=== PATIENT | male | born 1985 | race Caucasian/White ===

== ENCOUNTER 2021-08-06 16:18 | Inpatient (IN) | payer OTHER ==
[~2021-08-06] VITALS: Ht 172.7 cm; Wt 81.7 kg
--- NOTE | 2021-08-06 16:40 | PHYS DOC ---
Past History Past Surgical History: No Surgical History Adult General Chief Complaint Chief Complaint: DEHYDRATION HPI HPI Patient is a 35-year-old male with a past medical history significant for recent diagnosis of Covid who presents with a chief complaint of fatigue, body aches, cough, nasal congestion and nausea. States that the nausea was worse today, decreasing his appetite and is unable to eat anything without throwing up. States he has had some fluid. States that he was able to eat and drink before today. States he is making urine and stool normally for him. States he felt like he had a fever at home but did not take his temperature. Review of Systems Review of Systems Review of systems otherwise unremarkable except noted in HPI Allergies Allergies Allergies Coded Allergies Type Severity Reaction Last Updated Verified No Known Drug Allergies 08/06/21 No Physical Exam Physical Exam Constitutional: Well developed, well nourished, no acute distress, non-toxic appearance. [] HENT: Normocephalic, atraumatic, bilateral external ears normal, oropharynx moist, no oral exudates, nose normal. [] Eyes: conjunctiva normal, no discharge. [] Neck: Normal range of motion, no tenderness, supple, no stridor. [] Cardiovascular:Heart rate regular rhythm, no murmur [] Lungs & Thorax: Bilateral, global, rhonchi, Abdomen: soft, no tenderness, no masses, no pulsatile masses. [] Skin: Warm, dry, no erythema, no rash. [] Back: No tenderness, no CVA tenderness. [] Extremities: No tenderness, no cyanosis, no clubbing, ROM intact, no edema. [] Neurologic: Alert and oriented X 3, normal motor function, normal sensory function, no focal deficits noted. [] Psychologic: Affect normal, judgement normal, mood normal. [] Current Patient Data Vital Signs Vital Signs Date Time Temp Pulse Resp B/P (MAP) Pulse Ox O2 Delivery O2 Flow Rate FiO2 08/06/21 16:30 100.0 95 20 105/62 (76) 97 EKG EKG [] Radiology/Procedures Radiology/Procedures [] XR CHEST 1V CLINICAL INDICATIONS: Reason: cough, covid + / Spl. Instructions: / History: COMPARISON: None available. Findings: Mild ill-defined bilateral lung infiltrates are seen. No pleural effusion or pneumothorax is seen. The heart size, pulmonary vasculature, mediastinum and both sekou are unremarkable. IMPRESSION: Mild ill-defined bilateral lung infiltrates are seen. Electronically signed by: Humza Aguilera MD (08/06/2021 5:18 PM) [id number] Heart Score C/O Chest Pain: No Risk Factors: Risk Factors: DM, Current or recent (<one month) smoker, HTN, HLP, family history of CAD, obesity. Risk Scores: Risk Factors: DM, Current or recent (<one month) smoker, HTN, HLP, family history of CAD, obesity. Course & Med Decision Making Course & Med Decision Making Patient is a 35-year-old male, Covid positive who presents with viral syndrome symptoms Vital signs notable for borderline fever and heart rate in the 90s. Physical exam noted above. Placed on monitor with IV access established. IV fluid begun. Given med ications for symptom management. Given patient's pneumonia on chest x-ray and borderline hypoxia recommended admission to the hospital for continued evaluation treatment of his Covid pneumonia. Patient grateful, verbalized understanding and agreed with plan of admission. [] Dragon Disclaimer Dragon Disclaimer This electronic medical record was generated, in whole or in part, using a voice recognition dictation system. Departure Departure: Impression: Primary Impression: Lab test positive for detection of COVID-19 virus Additional Impressions: Cough Fatigue Body aches Pneumonia Disposition: ADMITTED INPATIENT Admitting Physician: Jamey Koch Condition: IMPROVED Referrals: PCP,NO (PCP) KYLE QUIROGA MD Problem Qualifiers JANUARY LUNDBERG MD Aug 06, 2021 16:40
[2021-08-06] MEDS ORDERED: ACETAMINOPHEN 500 MG TABLET PO ONE (16:45)
[2021-08-06] MEDS ORDERED: IBUPROFEN 600 MG TABLET. PO ONE (16:45)
[2021-08-06] MEDS ORDERED: METOCLOPRAMIDE HCL 10 MG/2 ML VIAL. IVP ONE (16:45)
[2021-08-06] MEDS ORDERED: ONDANSETRON PF 4 MG/2 ML VIAL. IVP ONE (16:45)
[2021-08-06] MEDS ORDERED: IV RINGERS SOLUTION,LACTATED 1,000 ML IV ONE (16:45)
[2021-08-06] MEDS: guaiFENesin/CODEINE 100mg/10mg 5 ML LIQUID PO PRN (17:02)
--- NOTE | 2021-08-06 17:20 | RAD ---
XR CHEST 1V CLINICAL INDICATIONS: Reason: cough, covid + / Spl. Instructions: / History: COMPARISON: None available. Findings: Mild ill-defined bilateral lung infiltrates are seen. No pleural effusion or pneumothorax i s seen. The heart size, pulmonary vasculature, mediastinum and both sekou are unremarkable. IMPRESSION: Mild ill-defined bilateral lung infiltrates are seen. Electronically signed by: Humza Aguilera MD (08/06/2021 5:18 PM) [id number]
[2021-08-06] MEDS ORDERED: DEXAMETHASONE SOD PHOS 10 MG/ML VIAL. IVP ONE (18:00)
[2021-08-06 19:06] LABS: BASO % 0 % (0-3); EOS % 0 % (0-3); HEMATOCRIT 39.8 % (39.0-53.0); HEMOGLOBIN 13.8 g/dL (13.0-17.5); LYMPH # 0.6 x10^3/uL (1.0-4.8); LYMPH % 18 % (24-48); MEAN CORPUSCULAR HEMOGLOBIN 30 pg (25-35); MEAN CORPUSCULAR HGB CONC 35 g/dL (31-37); MEAN CORPUSCULAR VOLUME 88 fL (79-100); MONO # 0.3 x10^3/uL (0.0-1.1); MONO % 10 % (0-9); NEUT # 2.4 x10^3uL (1.8-7.7); NEUT % 71 % (31-73); PLATELET COUNT 106 x10^3/uL (140-400); RED BLOOD COUNT 4.55 x10^6/uL (4.30-5.70); RED CELL DISTRIBUTION WIDTH 12.5 % (11.5-14.5); WHITE BLOOD COUNT 3.3 x10^3/uL (4.0-11.0)
[2021-08-06 19:31] VITALS: BP 102/63
[2021-08-06] MEDS ORDERED: CRESTOR5 MG PO (19:48)
[2021-08-06] MEDS ORDERED: MONT10TA80 PO (19:48)
[2021-08-06] MEDS ORDERED: AMLO-186 PO (19:48)
[2021-08-06] MEDS ORDERED: TRIA10.8 NS (19:48)
[2021-08-06] MEDS ORDERED: PANT40TA6 PO (19:48)
[2021-08-06] MEDS ORDERED: ASPI-889 PO (19:48)
[2021-08-06 19:51] LABS: GFR 86.1; POTASSIUM 3.9 mmol/L (3.5-5.1)
[2021-08-06 21:03] VITALS: BP 92/54
--- NOTE | 2021-08-06 21:22 | NUR ---
Admitted to ICU Rm 6 at approx 1900 in stable condition via EMS from ED; VSS, Sats 94% on room air, lungs CTA bilat with no report of SOA at rest; electronic device monitor shows sinus rhythm with rate in the 70's, no ectopy noted; tolerates water and saltine crackers with no nausea/vomiting at this time; admission history complete; room orientation and plan of care discussed, verbalized understanding; resting at present with no voiced needs or concerns at this time; call wallace in reach.
[2021-08-06] MEDS ORDERED: AZITHROMYCIN 500 MG in IV NORMAL SALINE 250ML 250 ML IV SCH (22:00)
[2021-08-06] MEDS: DEXAMETHASONE SOD PHOS 10 MG/ML VIAL. IV SCH (22:05)
[2021-08-06 22:29] VITALS: BP 112/70
[2021-08-06 23:04] VITALS: BP 100/67
[2021-08-07] VITALS (22 sets, daily range): BP systolic 90–126; BP diastolic 48–76
[2021-08-07 06:35] LABS: CREATININE 0.9 mg/dL (0.7-1.3); GFR 97.2; POTASSIUM 4.3 mmol/L (3.5-5.1)
[2021-08-07 07:28] LABS: BASO % 1 % (0-3); EOS % 0 % (0-3); HEMATOCRIT 44.2 % (39.0-53.0); LYMPH # 0.6 x10^3/uL (1.0-4.8); LYMPH % 34 % (24-48); MEAN CORPUSCULAR HEMOGLOBIN 30 pg (25-35); MEAN CORPUSCULAR HGB CONC 34 g/dL (31-37); MEAN CORPUSCULAR VOLUME 88 fL (79-100); MONO # 0.1 x10^3/uL (0.0-1.1); MONO % 7 % (0-9); NEUT % 59 % (31-73); PLATELET COUNT 124 x10^3/uL (140-400); RED BLOOD COUNT 5.03 x10^6/uL (4.30-5.70); RED CELL DISTRIBUTION WIDTH 12.5 % (11.5-14.5)
[2021-08-07 07:38] LABS: WHITE BLOOD COUNT 1.6 x10^3/uL (4.0-11.0)
[2021-08-07 08:10] LABS: % BANDS 2 % (0-9); % EOS 1 % (0-5); % LYMPHS 41 % (24-48); % MONOS 6 % (0-10); % SEGS 50 % (35-66); PLT ESTIMATE DECREASED (ADEQUATE)
[2021-08-07] MEDS: PANTOPRAZOLE 40 MG TABLET. PO SCH (08:45)
[2021-08-07] MEDS: ASPIRIN ENTERIC COATED 81 MG TABLET.DR. PO SCH (08:46)
[2021-08-07] MEDS: LACTOBACILLUS RHAMNOSUS GG 1 CAPSULE. PO SCH ×2 (08:46→19:39)
[2021-08-07] MEDS: DEXAMETHASONE SOD PHOS 10 MG/ML VIAL. IV SCH (08:46)
[2021-08-07] MEDS: amLODIPine BESYLATE 5 MG TABLET PO SCH (08:47)
--- NOTE | 2021-08-07 13:11 | HP ---
DATE OF SERVICE: 08/07/2021 ADMIT DATE: 08/06/2021 HISTORY OF PRESENT ILLNESS: The patient is a 35-year-old male patient who presented to the Emergency Room complaining of fatigue, body aches, cough, nasal congestion, and nausea. He states that his nausea was worse the day of admission, decreasing his appetite, he is unable to eat anything without throwing up. He was diagnosed with COVID about 8 days ago and his symptoms have steadily worsened such that he decided to come to the Emergency Room for further evaluation. He stated that he felt he had a fever at home, but did not take his temperature. He was extensively investigated in the Emergency Room and has had lab work and imaging studies. His lab work showed he has leukocytosis as well as thrombocytopenia. His chemistry showed he has mild hyponatremia. His chest x-ray showed that the patient has mild ill-defined bilateral lung infiltrates are seen. No pleural effusion or pneumothorax seen. The heart size, pulmonary vasculature, mediastinum and both sekou are unremarkable. The patient was admitted with COVID-19 pneumonia as well as possible superimposed community-acquired pneumonia. The patient continued to maintain his oxygen saturation on room air, was admitted, and was started on IV Levaquin together with all his other medication as well as dexamethasone. PAST MEDICAL HISTORY: Significant for hypertension, hyperlipidemia, gastroesophageal reflux disease and seasonal allergies. PAST SURGICAL HISTORY: He has also sinus surgery and left inguinal hernia repair. ALLERGIES: He has no known drug allergies. MEDICATIONS: He is currently on the following medications: He is on Crestor 5 mg once a day at bedtime, amlodipine besylate 5 mg once a day, aspirin 81 mg once a day, Singulair 10 mg at bedtime, triamcinolone acetonide, Nasacort 2 sprays to each nostril at bedtime and his Protonix 40 mg daily. FAMILY HISTORY: His father is still alive at age of 68 and has diabetes mellitus. Mother is alive at age of 58 and has CVA and diabetes mellitus. He has 4 brothers and 4 sisters, apparently all healthy. SOCIAL HISTORY: He is engaged. Has no children. Does not smoke, drink alcohol or use recreational drugs. 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 REVIEW OF SYSTEMS: As per history of present illness. PHYSICAL EXAMINATION: GENERAL: On arrival to the Emergency Room, the patient looked well and was clearly in no apparent respiratory distress. No pallor, jaundice, cyanosis or thyromegaly. No jugular venous distention. No limb edema. VITAL SIGNS: His heart rate on arrival was 95, blood pressure 105/62, temperature was 100, respiratory rate 20, and oxygen saturation was 97% on room air. HEAD, EYES, EARS, NOSE, AND THROAT: Normocephalic, atraumatic. NECK: Supple. HEART: Normal first and second heart sounds. No gallop, rub or murmur. CHEST: Shows central trachea, equal bilateral chest expansion, air entry, vesicular breath sounds, with crepitation mostly on the right side posteriorly. I could not appreciate any rhonchi. ABDOMEN: Distended, soft, nontender. NEUROLOGIC: He was grossly intact. LABORATORY DATA: Showed a serum sodium 131, potassium 3.9, chloride 100, bicarbonate 24, anion gap of 7, BUN 11, creatinine 1. Estimated GFR was 86 mL per minute. His glucose was 92, calcium was 8. White cell count was 3300, hemoglobin 13.8, hematocrit 39.8, MCV 88 and platelet count of 106,000 with a normal manual differential. ASSESSMENT AND PLAN: In summary, this is a 35-year-old male patient with COVID-19 pneumonia with possible superimposed community-acquired pneumonia. He continued to maintain his oxygen saturation of 96-97% on room air. Other medical problems include gastroesophageal reflux disease, hypertension, hyperlipidemia. Plan is to continue with IV Levaquin. Continue with dexamethasone. Continue with all his other medication. We will monitor him closely and if he remains stable, he can be discharged home on oral antibiotic and tapering course of steroids. ALANNAH DR: Stephanie TID: [id number]
[2021-08-07] MEDS: guaiFENesin DM 200MG/20MG 10 ML SYRUP PO PRN (20:02)
[2021-08-07] MEDS ORDERED: MONTELUKAST 10 MG TABLET. PO SCH (21:00)
[2021-08-07] MEDS ORDERED: ATORVASTATIN CALCIUM 20 MG TABLET PO SCH (21:00)
[2021-08-08] VITALS (17 sets, daily range): BP systolic 94–123; BP diastolic 50–80
[2021-08-08] MEDS: guaiFENesin/CODEINE 100mg/10mg 5 ML LIQUID PO PRN (00:43)
--- NOTE | 2021-08-08 03:07 | PN ---
DATE: 08/07/2021 SUBJECTIVE: The patient is resting, slightly propped up in bed, eating his lunch comfortably, in no apparent distress. He is feeling generally much improved. He has no more nausea or vomiting. He is able to eat and drink and denied any chest pain or shortness of breath. PHYSICAL EXAMINATION: GENERAL: When I examined him this afternoon, he looked well and was clearly in no apparent respiratory distress. No pallor, jaundice, cyanosis or thyromegaly. No jugular venous distention. No lower limb edema. VITAL SIGNS: His heart rate was 67, blood pressure is 106/74, temperature 97.3, respiratory rate was 16 and oxygen saturation was 95-96% on room air. HEAD, EYES, EARS, NOSE, AND THROAT: Normocephalic, atraumatic. NECK: Supple. HEART: Normal first and second heart sounds, no gallop or murmur. CHEST: Showed central trachea, equal bilateral expansion, air entry ____ with crepitation mostly on the right side posteriorly. I could not appreciate any rhonchi or wheezing. ABDOMEN: Distended, soft, nontender. NEUROLOGIC: He was grossly intact. LABORATORY DATA: Showed white cell count of 1600, hemoglobin 15, hematocrit 44, MCV 88 and platelet count of 124,000 with normal manual differential. His chemistry showed a serum sodium 139, potassium 4.3, chloride 103, bicarbonate 27, anion gap of 9, BUN 12, creatinine 0.9. Estimated GFR was 97 mL per minute. His glucose 136 and calcium was 9. ASSESSMENT: 1. COVID-19 pneumonia, questionable superimposed community-acquired pneumonia. No evidence of hypoxia, so far. Other medical problems include: A. Gastroesophageal reflux disease. B. Hypertension. C. Hyperlipidemia. PLAN: To continue with current plan and management. Review of his labs again tomorrow and if he remains stable, he might be discharged home to continue on oral antibiotic and tapering course of steroids. VALERIA/HERBERTH/RADHA DR: Stephanie TID: [id number]
[2021-08-08 06:53] LABS: HEMATOCRIT 42.5 % (39.0-53.0); HEMOGLOBIN 14.2 g/dL (13.0-17.5); RED BLOOD COUNT 4.81 x10^6/uL (4.30-5.70); RED CELL DISTRIBUTION WIDTH 12.6 % (11.5-14.5); WHITE BLOOD COUNT 6.4 x10^3/uL (4.0-11.0)
[2021-08-08] MEDS: guaiFENesin DM 200MG/20MG 10 ML SYRUP PO PRN (07:53)
[2021-08-08] MEDS: DEXAMETHASONE SOD PHOS 10 MG/ML VIAL. IV SCH (07:53)
[2021-08-08] MEDS: ASPIRIN ENTERIC COATED 81 MG TABLET.DR. PO SCH (07:54)
[2021-08-08] MEDS: amLODIPine BESYLATE 5 MG TABLET PO SCH (07:54)
[2021-08-08] MEDS: PANTOPRAZOLE 40 MG TABLET. PO SCH (07:54)
[2021-08-08] MEDS: LACTOBACILLUS RHAMNOSUS GG 1 CAPSULE. PO SCH (07:54)
[2021-08-08 08:05] LABS: ALBUMIN 3.3 g/dL (3.4-5.0); ALBUMIN/GLOBULIN RATIO 0.9 (1.0-1.7); CALCIUM 9.1 mg/dL (8.5-10.1); GFR 86.1; POTASSIUM 4.3 mmol/L (3.5-5.1); TOTAL BILIRUBIN 0.4 mg/dL (0.2-1.0)
[2021-08-08] MEDS ORDERED: guaiFENesin/CODEINE 100mg/10mg 5 ML LIQUID PO PRN (08:15)
[2021-08-08] MEDS ORDERED: DEXA6TAB6 PO (14:10)
[2021-08-08] MEDS ORDERED: LEVO750T5 PO (14:10)
--- NOTE | 2021-08-08 15:13 | NUR ---
Pt given discharge instructions along with home medications that were in the pharmacy. Pt given return to work notice and encouraged to stay in quarantine at home until 08/17/21.
--- NOTE | 2021-08-08 16:17 | NUR ---
pt discharged at approx 0415 via wheelchair by staff to main entrance where girlfriend was waiting to pick the pt up. pt given all belongings, paperwork, handouts and education as well as scripts sent to [facility] per pt request. Home meds were also returned to the pt upon discharge.
== END 2021-08-08 16:30 | disposition home or self-care (01) | DRG 177 ==
LOC: ER 16:18 → ICU 18:01
PROVIDERS: ADMIT Internal Medicine; ATTEND Internal Medicine
DX: U07.1 COVID-19 (principal); J12.82 Pneumonia due to coronavirus disease 2019; E87.1 Hypo-osmolality and hyponatremia; I10 Essential (primary) hypertension; E86.0 Dehydration; E78.5 Hyperlipidemia, unspecified; D69.6 Thrombocytopenia, unspecified; K21.9 Gastro-esophageal reflux disease without esophagitis; Z83.3 Family history of diabetes mellitus; Z82.3 Family history of stroke
CPT/HCPCS: 36415; 71045; 80048; 80053; 85007; 85025; 85027; 96361; 96374; 96375; J0456; J1100; J1956; J2405; J2765; J7050; J7120; 99285-25